=== PATIENT | male | born 1985 | race Caucasian/White ===

== ENCOUNTER 2020-11-05 21:34 | Emergency (ER) | payer OTHER, SELFPAY ==
[2020-11-05 21:36] VITALS: BP 140/72; PULSE 106; RESP 24; TEMP 36.6; O2SAT 100
--- NOTE | 2020-11-05 23:32 | ED.LOWEXIN ---
HPI - Extremity Injury (Lower) General Chief Complaint: Extremity Injury, Lower Stated Complaint: possible blood clot right leg Time Seen by Provider: 11/05/20 22:25 Source: patient Mode of arrival: ambulatory Limitations: no limitations History of Present Illness HPI Narrative: 35-year-old male Healthy other than being overweight Complains of feeling mildly systemically ill for about 24 hours with general malaise and achiness Last night he had what he described as a cramp in his right calf and then during the day today developed redness warmth and soreness He does not have a fever and is not immunocompromised No allergies Related Data Allergies Allergy/AdvReac Type Severity Reaction Status Date / Time No Known Allergies Allergy Verified 11/05/20 21:39 Review of Systems Review of Systems: All systems reviewed & are unremarkable except as noted in HPI and below Constitutional: Constitutional: Reports no additional constitutional complaints, Reports chills, Reports fatigue, Denies fever(s), Denies headache(s) and Reports weakness ENT: Denies headache(s) Cardiovascular: Cardiovascular: Denies dyspnea Respiratory: Respiratory: Denies cough and Denies dyspnea Gastrointestinal: Gastrointestinal: Denies nausea and Denies vomiting Musculoskeletal: Musculoskeletal: Reports myalgias, Denies deformity, Reports arthralgias, Reports joint swelling, Reports muscle cramps and Denies numbness Integumentary/Breasts: Skin/Breast: Reports rash, Reports skin ulcer and Denies wounds Neurologic: Denies headache(s), Denies focal weakness and Denies numbness Psychiatric: Psychiatric: Reports no additional psychiatric complaints [facility] Family History Family History (Updated 07/25/15 @ 09:38 by DOCTOR UNKNOWN) Other Acute myocardial infarction Family history of coronary artery disease Family history of lung cancer Family history of thyroid disease Social History Social History Smoking status: Never smoker Alcohol intake: current Exam Const: General: cooperative, no acute distress and alert Nutritional Appearance: obese Orientation/consciousness: patient oriented x3 (alert) HENMT: Head: normal to inspection, normocephalic and atraumatic Ears: external ears normal General nose exam: Epistaxis present Eyes: Conjunctivae: conjunctivae normal EOM: EOMs intact bilaterally Neck: Neck: supple and no JVD Resp: Effort & Inspection: normal respiratory effort and not labored Auscultation: other (BS =) Skin: General skin exam: no rashes or lesions noted Other: Cellulitis to the right lower leg with erythema extending from the ankle to about two [address] to the knee anteriorly, some superficial abrasions laterally to the lower leg, no drainage, good pedal pulses, no lymphangitis proximally Neuro: General: patient oriented x3 (alert) and moves all extremities Speech: normal speech Extrem: Other: Cellulitis right lower leg Psych: Affect: normal affect Course Vital Signs Vital signs: Vital Signs Temperature 36.6 C 11/05/20 21:36 Pulse Rate 106 H 11/05/20 21:36 Respiratory Rate 24 H 11/05/20 21:36 Blood Pressure 140/72 11/05/20 21:36 Pulse Oximetry 100 11/05/20 21:36 Temperature 36.6 C 11/05/20 21:36 Pulse Rate 106 H 11/05/20 21:36 Respiratory Rate 24 H 11/05/20 21:36 Blood Pressure 140/72 11/05/20 21:36 Pulse Oximetry 100 11/05/20 21:36 Discharge Plan Discharge Clinical Impression: Cellulitis and abscess of right leg Patient Disposition: Home, Self-Care Condition: Stable Instructions: Antibiotic Form, Cellulitis (ED) Prescriptions: New cephalexin [Keflex] 750 mg capsule 750 mg PO Q6H Qty: 40 RF: 0 Follow-up/Referrals: PHYSICIAN,[employer] [Primary Care Provider] - Cristo Morris MD [Physician] - (3 or 4 days, or your current primary care doctor)
[2020-11-05] MEDS: CEPHALEXIN 250 MG CAPSULE 750 MG PO (23:59)
[2020-11-06 00:13] VITALS: BP 138/76; PULSE 77; RESP 18; O2SAT 100
== END 2020-11-06 00:14 | disposition home or self-care (01) ==
PROVIDERS: Emergency Provider Emergency Medicine
DX: L03.115 Cellulitis of right lower limb (principal); L02.415 Cutaneous abscess of right lower limb
CPT/HCPCS: 99283; A9270